=== PATIENT | male | born 1985 | race American Indian/Alaskan Native ===

== ENCOUNTER 2017-07-27 19:02 | Emergency (ER) | payer BC ==
[2017-07-27 19:20] VITALS: TEMP 98.5
[2017-07-27] MEDS ORDERED: Naproxen 550 mg Tab PO STA (19:54)
--- NOTE | 2017-07-27 19:54 | C.PDOC ---
History Of Present Illness 32-year-old male, presents to the emergency department with complaints of pain to left testicle for the past 1.5 weeks. Patient was seen by PMD last week, who prescribed antibiotics and pain medication ( unsure of names). Patient had ultrasound last week but has not had results yet, states that he had US in the past for same c/o and was told he had a cyst. Pt states the pain medication is not working for him anymore, resulting in him coming to the ED for evaluation. Denies numbness/weakness, fevers, chest pain, shortness of breath, nausea/ vomiting, dysuria, hematuria, or any other associated symptoms. No other complaints at this time. Time Seen by Provider: 07/27/17 19:24 Chief Complaint (Nursing): Male Genitourinary History Per: Patient History/Exam Limitations: no limitations Onset/Duration Of Symptoms: Days Current Symptoms Are (Timing): Still Present Past Medical History Reviewed: Historical Data, Nursing Documentation, Vital Signs Vital Signs: Last Vital Signs Temp 98.5 F 07/27/17 19:11 Pulse 70 07/27/17 20:38 Resp 16 07/27/17 20:38 BP 136/85 07/27/17 20:38 Pulse Ox 98 07/27/17 20:38 - Medical History PMH: Chronic Pain (Back) Family History: States: No Known Family Hx - Social History Hx Alcohol Use: Yes Hx Substance Use: No - Immunization History Hx Tetanus Toxoid Vaccination: No Hx Influenza Vaccination: No Hx Pneumococcal Vaccination: No Review Of Systems Constitutional: Negative for: Fever, Chills Gastrointestinal: Negative for: Nausea, Vomiting Genitourinary: Positive for: Scrotal Pain. Negative for: Dysuria, Frequency, Hematuria, Penile Discharge, Rash, Penile Pain Skin: Negative for: Rash Physical Exam - Physical Exam Appears: Non-toxic, No Acute Distress Skin: Warm, Dry, No Rash Cardiovascular: Rhythm Regular, No Murmur Respiratory: Normal Breath Sounds, No Accessory Muscle Use Gastrointestinal/Abdominal: Soft, No Tenderness Male Genital: No Inguinal Swelling, Other (Tenderness to left testicular area, with minimal swelling. No scrotal erythema, no masses,no fluctuance. ) Extremity: Normal ROM Neurological/Psych: Oriented x3, Normal Speech ED Course And Treatment O2 Sat by Pulse Oximetry: 96 (RA) Pulse Ox Interpretation: Normal Progress Note: Patient treated with PO Naproxen. Pain has improved, he will be discharged for outpatient f/u with PMD in office, patient is instructed to call the office in the morning for US results and further management. Disposition - Disposition Referrals: Nir Chen MD [Staff Provider] - Disposition: HOME/ ROUTINE Disposition Time: 20:30 Condition: STABLE Additional Instructions: Continue current pain meds See Dr Chen in office tomorrow for US report and management Return to ER if worse Instructions: Testicle Pain (ED) Forms: [employer] ([place]) - Clinical Impression Clinical Impression: Testicular pain, left - Scribe Statement The provider has reviewed the documentation as recorded by the Scribe (Taj Campos) All medical record entries made by the Scribe were at my direction and personally dictated by me. I have reviewed the chart and agree that the record accurately reflects my personal performance of the history, physical exam, medical decision making, and the department course for this patient. I have also personally directed, reviewed, and agree with the discharge instructions and disposition.
[2017-07-27] MEDS ORDERED: Naproxen 550 mg Tab PO ONE (20:01)
[2017-07-27 20:39] VITALS: BP 136/85; PULSE 70; RESP 16
[2017-07-28 01:47] VITALS: O2SAT 96
== END 2017-07-27 20:38 | disposition home or self-care (01) ==
LOC: C.ER 19:02
DX: N50.812 Left testicular pain (principal)